=== PATIENT | male | born 1990 | race Caucasian/White ===

== ENCOUNTER 2016-06-23 17:44 | Emergency (ER) | payer OTHER ==
[~2016-06-23] VITALS: Ht 175.3 cm; Wt 96.2 kg
[~2016-06-23 17:44] MED LIST: AMOXICILLIN875 MG PO; CIPRO500 MG PO; FLAGYL500 MG PO; MOTRIN800 MG PO; PERCOCET 10/1 TABLET PO; PERCOCET 5/31 TABLET PO; PROAIR HFA8.5 GM IH; PROMETHAZINE HC25 M1 PO; ROXICODONE5 MG PO; ZITHROMAX Z-PA250 MG PO; ZOFRAN ODT4 MG PO
[2016-06-23] MEDS ORDERED: XANAX0.25 MG PO (20:28)
[2016-06-23 20:39] VITALS: BP 128/72
== END 2016-06-23 20:39 | disposition home or self-care (01) ==
LOC: EME 17:44
DX: F41.9 Anxiety disorder, unspecified (principal); Z73.3 Stress, not elsewhere classified; J45.909 Unspecified asthma, uncomplicated; I10 Essential (primary) hypertension; F17.200 Nicotine dependence, unspecified, uncomplicated
CPT/HCPCS: 99281; 99283

== ENCOUNTER 2016-11-06 19:37 | Emergency (ER) | payer OTHER ==
[~2016-11-06] VITALS: Ht 175.3 cm; Wt 92.0 kg
[~2016-11-06 19:37] MED LIST changes: +XANAX0.25 MG PO
[2016-11-06] MEDS ORDERED: TRAMADOL HCL50 MG PO (21:13)
[2016-11-06] MEDS ORDERED: MOTRIN600 MG PO (21:13)
[2016-11-06] MEDS ORDERED: AMOXICILLIN875 MG PO (21:13)
[2016-11-06 21:29] VITALS: BP 148/98
== END 2016-11-06 21:30 | disposition home or self-care (01) ==
LOC: EME 19:37
DX: K08.89 Other specified disorders of teeth and supporting structures (principal); F17.200 Nicotine dependence, unspecified, uncomplicated
CPT/HCPCS: 99281; 99283